=== PATIENT | male | born 1980 | race Caucasian/White ===

== ENCOUNTER → 2018-11-26 08:02 | Outpatient (CLI) | payer OTHER, SELFPAY ==
--- NOTE | 2018-11-26 08:08 | DI.MRI.S_ITS ---
PROCEDURE: MR CERVICAL SPINE WO CON INDICATIONS: CERVICALGIA TECHNIQUE: Noncontrast sagittal T1 spin echo and T2 fast spin echo, sagittal STIR, foraminal oblique sagittal T2 fast spin echo, and axial gradient echo or T2 fast spin echo through the cervical spine. COMPARISON: None. FINDINGS: Image quality: Diagnostic. Spinal Cord: Visualized spinal cord has normal size and signal. No cerebellar tonsillar herniation. The imaged midline intracranial structures are grossly unremarkable. Paraspinous Soft Tissues: No paravertebral masses. Prevertebral soft tissues are normal in thickness. No definite lymphadenopathy is identified. Bones: The vertebral body heights and marrow signal are well-maintained. There is no evidence of an acute fracture or dislocation. No suspicious osseous lesions are identified. No spondylolisthesis is evident. C2-C3: There is no significant disc bulge or facet arthropathy. No central canal or neural foraminal stenosis is evident. C3-C4: There is no significant disc bulge or facet arthropathy. No central canal or neural foraminal stenosis is evident. C4-C5: There is no significant disc bulge. Mild facet arthrosis at this level is present. The findings result in mild bilateral neural foraminal narrowing. There is no central canal stenosis. C5-C6: No significant disc bulge is present. Mild to moderate bilateral facet arthrosis is noted (left greater than right). There is no central canal stenosis. However, these findings result in moderate left and mild right neural foraminal narrowing. C6-C7: There is no significant disc bulge or facet arthropathy. No central canal or neural foraminal stenosis is evident. C7-T1: There is no significant disc bulge or facet arthropathy. No central canal or neural foraminal stenosis is evident. IMPRESSION: 1. Mild degenerative changes of the cervical spine. 2. No disc protrusions or extrusions. 3. Mild to moderate neural foraminal narrowing at C4-5 and C5-6 is predominantly related to known mild to moderate facet arthrosis. Dictated by: Luc Stanley M.D. on 11/26/2018 at 9:14 Approved by: Luc Stanley M.D. on 11/26/2018 at 9:18
--- NOTE | 2018-11-26 08:08 | DI.MRI.S_ITS ---
PROCEDURE: MR LUMBAR SPINE WO CON INDICATIONS: low back pain TECHNIQUE: Noncontrast sagittal T1 spin echo and T2 fast echo, sagittal STIR, axial T1 and T2 fast spin echo through the lumbar spine. In cases with scoliosis, additional coronal T2 fast spin echo may be performed. COMPARISON: None. FINDINGS: Image quality: Excellent. In the absence of plain films for comparison, it is assumed that there are 5 nonrib-bearing lumbar vertebral bodies, and axial imaging was obtained from T12-S1. Alignment and Curvature: There is normal bony alignment. Bone Marrow: Marrow is of normal overall signal. No acute vertebral body compression fractures. Spinal Cord: Conus medullaris terminates at the L2 level. Visualized cord demonstrates normal signal and size. Paraspinous Soft Tissues: No paravertebral masses. T12-L1: No canal stenosis or foraminal stenosis. Facet joints are unremarkable. L1-L2: Normal appearance. L2-L3: Normal appearance. L3-L4: Normal appearance. L4-L5: Normal appearance. L5-S1: There is a mild central posterior disc protrusion which abuts the S1 nerve roots in the lateral recesses. No foraminal stenosis. Facet joints are unremarkable. IMPRESSION: Mild central posterior disc protrusion at L5-S1 abuts the S1 nerve roots in the lateral recesses. Dictated by: Tru Camejo M.D. on 11/26/2018 at 9:08 Approved by: Tru Camejo M.D. on 11/26/2018 at 9:16
== END ==
PROVIDERS: Visit Provider General Practice
DX: M54.2 Cervicalgia (principal); M51.27 Other intervertebral disc displacement, lumbosacral region; M47.812 Spondylosis without myelopathy or radiculopathy, cervical region; M48.02 Spinal stenosis, cervical region
CPT/HCPCS: 72141; 72148

== ENCOUNTER → 2020-04-03 06:59 | Outpatient (CLI) | payer OTHER, SELFPAY ==
--- NOTE | 2020-04-03 | DI.MRI.S_ITS ---
PROCEDURE: MR THORACIC SPINE WO/W CON INDICATIONS: pain TECHNIQUE: Noncontrast sagittal T1 spin echo and T2 fast spin echo, sagittal STIR, axial T1 and T2 fast spin echo through the thoracic spine. After the administration of contrast, axial and sagittal T1 spin echo with fat saturation through the thoracic spine. COMPARISON: [facility], CR, XR THORACIC SPINE 2 VIEWS, 10/11/2019, 10:41. FINDINGS: Image quality: Excellent. Alignment and curvature: There is normal bony alignment. Marrow: Marrow is of normal overall signal. No acute vertebral body compression fractures. Spinal cord: Visualized spinal cord is of normal signal and size, without abnormal enhancement. Paraspinous soft tissues: No paravertebral masses or abnormal enhancement. Miscellaneous: Mild T4-T5, T5-T6 and T7-T8 degenerative changes. Moderate T6-T7-T8-T9 and T9-T10 degenerative changes. Small central T6-T7 disc protrusion. Mild T6-T7 T7 central canal narrowing.. No neural foraminal narrowing. IMPRESSION: 1. Multilevel degenerative disc disease. 2. Mild T6-T7 central canal narrowing. 3. No neural foraminal narrowing 4. No neural compression. 5. No vertebral body compression fracture. 6. No suspicious postcontrast enhancement. Dictated by: Delia Hannah MD, PhD on 04/03/2020 at 11:12 Approved by: Delia Hannah MD, PhD on 04/03/2020 at 12:36
== END ==
PROVIDERS: Referring Provider General Practice; Visit Provider General Practice
DX: M54.6 Pain in thoracic spine (principal); M51.34 Other intervertebral disc degeneration, thoracic region; M48.04 Spinal stenosis, thoracic region
CPT/HCPCS: 72157